=== PATIENT | female | born 1995 | race Two or more races ===

== ENCOUNTER 2017-02-08 17:51 | Emergency (ER) | payer OTHER ==
--- NOTE | 2017-02-08 18:50 | ER Document Report ---
HPI - HPI Patient complains to provider of: viera vaginal discharge Onset: Last week Onset/Duration: Gradual Pain Level: 1 Context: 21 yo female c/o bryant vaginal discharge, no odor. some suprabpubic discomfort, thinks she has a urinary tract infection. No fever or chills. Associated Symptoms: None Exacerbated by: Denies Relieved by: Denies Similar symptoms previously: No Recently seen / treated by doctor: No - ROS ROS below otherwise negative: Yes Systems Reviewed and Negative: Yes All other systems reviewed and negative Past Medical History - General Information source: Patient - Social History Smoking Status: Never Smoker Frequency of alcohol use: None Drug Abuse: None Lives with: Spouse/Significant other Family History: Reviewed & Not Pertinent - Medical History Medical History: Negative Surgical Hx: Negative Vertical Provider Document - CONSTITUTIONAL Agree With Documented VS: Yes Exam Limitations: No Limitations General Appearance: No Apparent Distress - INFECTION CONTROL TRAVEL OUTSIDE OF THE [place] IN LAST 30 DAYS: No - HEENT HEENT: Normal ENT Exam - NECK Neck: Supple - RESPIRATORY Respiratory: Breath Sounds Normal, No Respiratory Distress O2 Sat by Pulse Oximetry: 100 - CARDIOVASCULAR Cardiovascular: Regular Rate, Regular Rhythm - GI/ABDOMEN Gastrointestinal: Abdomen Soft, Abdomen Non-Tender - BACK Back: Normal Inspection. negative: CVA Tenderness-Right, CVA Tenderness-Left - MUSCULOSKELETAL/EXTREMETIES Musculoskeletal/Extremeties: BRENDA SAWYER - NEURO Level of Consciousness: Awake, Alert, Appropriate - DERM Integumentary: Warm, Dry Course - Vital Signs Vital signs: Temp Pulse Resp BP Pulse Ox 97.6 F 98 18 118/73 100 02/08/17 17:56 02/08/17 17:56 02/08/17 17:56 02/08/17 17:56 02/08/17 17:56 Discharge - Discharge Clinical Impression: Bacterial vaginosis Condition: Good Disposition: HOME, SELF-CARE Instructions: Metronidazole ([facility]), Vaginosis, Bacterial ([facility]) Additional Instructions: see obgyn doctor if this persists no alcohol when taking the metronidazole for 1 week, twice a day to er if worse copy of labs given to you please call me in 3 hours for the STD culture result [phone] Prescriptions: Metronidazole [Flagyl 500 mg Tablet] 500 mg PO BID #14 tablet Referrals: VICKY MAGAÑA MD [ACTIVE STAFF] - Follow up as needed
[2017-02-08 19:47] LABS: APPEARANCE,URINE SLIGHTLY-CLOUDY; BILIRUBIN,URINE NEGATIVE (NEGATIVE); GLUCOSE, URINE NEGATIVE (NEGATIVE); KETONES,URINE NEGATIVE (NEGATIVE); LEUKOCYTE ESTERASE,URINE TRACE (NEGATIVE); NITRITE,URINE NEGATIVE (NEGATIVE); PROTEIN,URINE NEGATIVE (NEGATIVE); URINE SPECIFIC GRAVITY 1.025; UROBILINOGEN,URINE NEGATIVE mg/dL (<2.0)
[2017-02-08 20:37] VITALS: BP 110/70
== END 2017-02-08 20:36 | disposition home or self-care (01) ==
LOC: ER 17:51
DX: N76.0 Acute vaginitis (principal); B96.89 Other specified bacterial agents as the cause of diseases classified elsewhere
CPT/HCPCS: 81001; 81025; 87086; 87210; 87491; 87591; 99283

== ENCOUNTER 2017-10-30 06:37 | Inpatient (IN) | payer OTHER ==
--- NOTE | 2017-10-30 07:16 | Admission Physical ---
Datetime Report Generated by CPN: 10/30/2017 07:16 CURRENT ADMISSION Chief Complaint: Uterine Contractions; Suspected Ruptured Membranes Admit Impression : No Active Labor; Ruptured Membranes Admit Plan: Admit to Unit; Initiate Labor Protocol ALLERGIES Medication Allergies: No Known Allergies (02/08/2017) OBSTETRICAL HISTORY EDC: 11/30/2017 00:00 : 2 Term: 0 SAB: 0 Ectopic: 0 Livin Cesareans: 0 VBACs: 0 Multiple Births: 0 PHYSICAL EXAM General: Normal HEENT: Normal Neurologic: Normal Thyroid: Deferred Heart: Normal Lungs: Normal Breast: Deferred Back: Normal Abdomen: Normal Genitourinary Exam: Normal Extremities: Normal DTRs: Normal Pelvic Type: Adequate Vital Signs: Reviewed VAGINAL EXAM Dilatation: 3 Effacement: 80 Station: -2 Contraction Comments: q 2-3 FETUS A EGA: 35.4 Monitoring: External US FHR- Baseline: 125 Variability: Moderate 6-25bpm Accelerations: 15X15 Decelerations: None FHR Category: Category I Presentation: Vertex Admit Comment: 21yo (term for NTD at 20wks) at 35+4ega presents for uterine ctx. Upon arrival SROM with clear fluid. GBS unknown. PCN for GBS prophy. May augment if needed. o/w uncomplicated. Admit to Labor and delivery for delivery. Anticipate . INFORMED CONSENT Informed Consent Obtained: Vaginal Delivery; Risks, Benefits and Alternatives Discussed Signature: with User ID: [email or web address]
[2017-10-30] MEDS ORDERED: PENICILLIN G POTASSIUM 5,000,000 UNIT in DEXTROSE 5%-WATER 100 ML IV ONE (07:30)
[2017-10-30] MEDS ORDERED: RINGERS SOLUTION,LACTATED 1,000 ML IV ONE (07:30)
[2017-10-30] MEDS ORDERED: RINGERS SOLUTION,LACTATED 1,000 ML IV PRN (07:30)
[2017-10-30] MEDS ORDERED: EPHEDRINE SULFATE INJ 50 MG/1 ML AMPULE ONE (08:11)
[2017-10-30] MEDS ORDERED: BUPIVACAINE HCL 0.5 % INJ/PF 30 ML SDV ONE (08:12)
[2017-10-30] MEDS ORDERED: FENTANYL/BUPIVACAINE/NS/PF 200 MCG/100 ML RTUINJ EPI ONE (08:12)
[2017-10-30 08:21] LABS: APPEARANCE,URINE CLEAR; BILIRUBIN,URINE NEGATIVE (NEGATIVE); COLOR,URINE YELLOW; GLUCOSE, URINE NEGATIVE (NEGATIVE); KETONES,URINE NEGATIVE (NEGATIVE); LEUKOCYTE ESTERASE,URINE TRACE (NEGATIVE); NITRITE,URINE NEGATIVE (NEGATIVE); PROTEIN,URINE NEGATIVE (NEGATIVE); URINE SPECIFIC GRAVITY 1.006; UROBILINOGEN,URINE NEGATIVE mg/dL (<2.0)
[2017-10-30] MEDS ORDERED: MISOPROSTOL 0.2 MG TABLET ONE (08:21)
[2017-10-30] MEDS ORDERED: OXYTOCIN/NORMAL SALINE 20 UNIT/1,000 ML RTUINJ ONE (08:22)
[2017-10-30] MEDS ORDERED: LIDOCAINE 1% INJ-PF (10 MG/ML) 30 ML SDV ONE (08:22)
[2017-10-30 08:35] LABS: URINE AMPHETAMINES SCREEN NEGATIVE; URINE BARBITURATES SCREEN NEGATIVE; URINE BENZODIAZEPINES SCREEN NEGATIVE; URINE COCAINE SCREEN NEGATIVE; URINE MARIJUANA (THC) SCREEN NEGATIVE; URINE METHADONE SCREEN NEGATIVE; URINE PHENCYCLIDINE SCREEN NEGATIVE
[2017-10-30 08:37] LABS: HEMOGLOBIN 10.8 g/dL (12.0-15.5); MEAN CORPUSCULAR HGB CONC 32.7 g/dL (32.0-36.0); MEAN CORPUSCULAR VOLUME 86 fl (80-97); PLATELET COUNT 420 10^3/uL (150-450); RED BLOOD COUNT 3.86 10^6/uL (3.72-5.28); RED CELL DISTRIBUTION WIDTH 14.2 % (11.5-14.0); WHITE BLOOD COUNT 13.6 10^3/uL (4.0-10.5)
[2017-10-30] MEDS ORDERED: PENICILLIN G-K 5 MILLION UNIT VIAL ONE ×2 (09:44→13:37)
--- NOTE | 2017-10-30 10:50 | L&D Progress Notes ---
PROGRESS NOTES Datetime Report Generated by CPN: 10/30/2017 10:50 PROGRESS NOTE Impression: Reassuring Heart Rate Procedures: Sterile Vag Exam Plan: Continue Present Management; Anticipate Vaginal Delivery Informed Consent Obtained: Vaginal Delivery; Risks, Benefits and Alternatives Discussed Vital Signs : Reviewed; Within Normal Limits Comment: with SROM and spontaneous labor at 35.4 wks. PCN prophylaxis for unknown GBS. Pt comfortable with the epidural. Feeling no rectal pressure at all. Dr Araiza aware of pt status and agrees with plan of care. Will labor down until strong urge to push. Anticipate VAGINAL EXAM Dilatation: rim Dilatation: 3 Effacement: 100 Effacement: 80 Station: 1 Station: -2 Contractions: q2-4 Contractions: q 2-3 MEMBRANES Membranes: Ruptured Amniotic Fluid Color: Clear FETUS A Monitoring: External US Variability: Moderate 6-25bpm Accelerations: 15X15 Decelerations: None FHR Category: Category I Presentation: Vertex SIGNATURE SIGNATURE: [id number] SIGNATURE: [id number] Assignment: Megan Araiza MD Signature: with User ID: [email or web address] : with User ID: [email or web address]
--- NOTE | 2017-10-30 12:58 | L&D Progress Notes ---
PROGRESS NOTES Datetime Report Generated by CPN: 10/30/2017 12:58 PROGRESS NOTE Impression: Normal Progression of Labor; Reassuring Heart Rate Procedures: Sterile Vag Exam Plan: Continue Present Management; Anticipate Vaginal Delivery Vital Signs : Reviewed; Within Normal Limits Comment: Pt remains comfortable with the epidural, no strong urge to push. PCN x 1 dose infused, next dose due in one hour. Will labor down and start pushing when 2nd dose of PCN is infusing.Dr Araiza updated, Anticipate . VAGINAL EXAM Dilatation: 10 Effacement: 100 Station: 1 MEMBRANES Membranes: Ruptured Amniotic Fluid Color: Clear FETUS A FHR - Baseline: 125 Variability: Moderate 6-25bpm Decelerations: None FHR Category: Category I FETUS C SIGNATURE: [id number] Assignment: Megan Araiza MD Signature: with User ID: [email or web address] : with User ID: [email or web address]
[2017-10-30] MEDS: PENICILLIN G POTASSIUM 2,500,000 UNIT in DEXTROSE 5%-WATER 50 ML IV SCH ×2 (13:52→17:52)
[2017-10-30] MEDS ORDERED: DIPH/PERTUSS(ACELL)/TETANUS VAC/PF 0.5 ML SYR (>=10YO) IM PRN (15:04)
[2017-10-30] MEDS ORDERED: OXYTOCIN/NORMAL SALINE 20 UNIT/1,000 ML RTUINJ IV PRN (15:04)
[2017-10-30] MEDS ORDERED: DIBUCAINE 1% OINTMENT 28 GM TP PRN (15:04)
[2017-10-30] MEDS ORDERED: ACETAMINOPHEN WITH CODEINE #3 TABLET PO PRN (15:04)
[2017-10-30] MEDS ORDERED: MEASLES,MUMPS&RUBELLA VACC/PF 0.5 ML VIAL SUBCUT PRN (15:04)
[2017-10-30] MEDS ORDERED: ZOLPIDEM TARTRATE 5 MG TABLET PO PRN (15:04)
[2017-10-30] MEDS ORDERED: BENZOCAINE/MENTHOL AEROSOL SPRAY 56 ML TOP PRN (15:04)
--- NOTE | 2017-10-30 17:01 | Delivery Summary ---
Del Sum A-C Datetime Report Generated by CPN: 10/30/2017 17:01 DELIVERY PERSONNEL DELIVERY PERSONNEL: [id number] Delivery Doctor:: Lenore Wade CNM (Annotations: Data stored by [facility] on behalf of user) Labor and Delivery Nurse:: Crystal Mendez RNbook mender Nurse:: ANNEMARIE Momin Sales Service Manager/MEAT PACKAGER: Corina Dixon CST Sales Service Manager/MEAT PACKAGER: Ruthie Moscoso CNA II Additional Personnel: : Zia Cohen, RN MATERNAL INFORMATION Delivery Anesthesia: Epidural Medications After Delivery: Pitocin Bolus-Please Comment; Pitocin Drip 20 Units/1000ml NSS Estimated Blood Loss (ml): 100 Maternal Complications: None Provider Comments: of viable 35 wk male, delivered HUMA with loose NC which was easily reduced. Baby vigorous and crying, placed on pts abdoman in stable condition. Delayed cord clamping x 1 min, then cord was clamped and cut. Cord blood obtained. Placenta delivered S/C/I. Pitocin infusing, Fundus Firm. Perineum intact. Mother and baby in stable condition and skin to skin. Pt plans to breastfeed LABOR SUMMARY EDC: 11/30/2017 00:00 No. Babies in Womb: 1 Attempted: No Labor Anesthesia: Epidural LABOR INFORMATION Reason for Induction: Not Applicable Onset of Labor: 10/30/2017 08:18 Complete Dilatation: 10/30/2017 12:51 Oxytocin: N/A Group B Beta Strep: UNKNOWN Antibiotics # of Doses: 2 Antibiotics Time of Last Dose: 1351 Name of Antibiotic Given: PENICILLIN G Steroids Given: None Reason Steroids Not Administered: Not Applicable MEMBRANES Membranes Rupture Method: Spontaneous Rupture of Membranes: 10/30/2017 06:56 Length of Rupture (hr): 7.77 Amniotic Fluid Color: Clear Amniotic Fluid Amount: Moderate Amniotic Fluid Odor: Normal STAGES OF LABOR Stage 1 hr: 4 Stage 1 min: 33 Stage 2 hr: 1 Stage 2 min: 51 Stage 3 hr: 0 Stage 3 min: 7 Total Time in Labor hr: 6 Total Time in Labor min: 31 VAGINAL DELIVERY Episiotomy: None Laceration #1: None Laceration Extension #1: N/A Laceration Repair: Not Applicable Sponge Count Correct: N/A Sharps Count Correct: N/A BABY A INFORMATION Infant Delivery Date/Time: 10/30/2017 14:42 Method of Delivery: Vaginal Born in Route : No : N/A Forceps: N/A Vacuum Extraction: N/A Shoulder Dystocia : No PRESENTATION/POSITION BABY A Presentation: Cephalic Cephalic Presentation: Vertex Vertex Position: Right Occipital Anterior Breech Presentation: N/A PLACENTA INFORMATION BABY A Placenta Delivery Time : 10/30/2017 14:49 Placenta Method of Delivery: Spontaneous Placenta Status: Delivered SCORES BABY A Heart Rate 1 min: >100 bpm Resp Effort 1 min: Good Cry Reflex Irritability 1 min: Cough or Sneeze or Pulls Away Muscle Tone 1 min: Active Motion Color 1 min: Body [place], Extremities Blue Resuscitation Effort 1 min: Tactile Stimulation SCORE 1 MIN: 9 Heart Rate 5 min: >100 bpm Resp Effort 5 min: Good Cry Reflex Irritability 5 min: Cough or Sneeze or Pulls Away Muscle Tone 5 min: Active Motion Color 5 min: Body [place], Extremities Blue Resuscitation Effort 5 min: Tactile Stimulation SCORE 5 MIN: 9 INFORMATION BABY A Gestational Age at Delivery: 35.4 Gestational Status: Late - 34- 36.6 Weeks Infant Outcome : Liveborn Condition : Stable Infant Sex: Male IDENTIFICATION BABY A Infant Verification Date/Time: 10/30/2017 15:10 ID Band Number: [id number] Mother's Name Verified: Yes RN Verifying : R FANNY RN Additional Verifying Personnel: [facility] WEIGHT/LENGTH BABY A Infant Birthweight (gm): 2765 Weight (lb): 6 Infant Weight (oz): 2 Length (in): 19.00 Infant Length (cm): 48.26 CORD INFORMATION BABY A No. Cord Vessels: 3 Nuchal Cord : Around Neck x1, Loose Cord Blood Taken: Yes-For Storage (Mom's Blood type +) Suction: None ASSESSMENT BABY A Complications: Other Infant Complications- Other: PROM Physical Findings at Delivery: Caput Succedaneum Physical Findings- Other: 1532 baby to nursery Respirations: Grunting Skin to Skin: Yes Skin to Skin Time (min): 50 Operations Support Professionals/ALS Called : No Infant Care By: ANNEMARIE GIL Transferred To: Remains with Mother BABY B INFORMATION : N/A SIGNATURES Assignment: Megan Araiza MD Signature: with User ID: [email or web address] : with User ID: [email or web address]
[2017-10-30] MEDS: DOCUSATE SODIUM 100 MG CAPSULE PO SCH (17:57)
[2017-10-30] MEDS ORDERED: FERROUS SULFATE 325 MG TABLET PO SCH (18:00)
[2017-10-30] MEDS: IBUPROFEN 800 MG TABLET PO SCH (22:08)
[2017-10-30 23:27] LABS: CHLAM PCR NOT DETECTED (NOT DETECT); GON PCR NOT DETECTED (NOT DETECT)
[2017-10-31] MEDS: ACETAMINOPHEN WITH CODEINE #3 TABLET PO PRN ×2 (03:50→09:46)
[2017-10-31] MEDS: IBUPROFEN 800 MG TABLET PO SCH ×3 (05:33→21:20)
[2017-10-31 07:32] LABS: HEMATOCRIT 32.4 % (36.0-47.0); HEMOGLOBIN 10.7 g/dL (12.0-15.5); MEAN CORPUSCULAR HEMOGLOBIN 27.6 pg (27.0-33.4); MEAN CORPUSCULAR VOLUME 84 fl (80-97); PLATELET COUNT 354 10^3/uL (150-450); RED BLOOD COUNT 3.86 10^6/uL (3.72-5.28); RED CELL DISTRIBUTION WIDTH 14.4 % (11.5-14.0); WHITE BLOOD COUNT 13.8 10^3/uL (4.0-10.5)
--- NOTE | 2017-10-31 09:34 | PDOC PROGRESS REPORT ---
Subjective-OB Progress Note for:: 10/31/17 Subjective: Pt doing well, no concerns. She reports light bleeding, reg diet, and no difficulty voiding. Physical Exam (OB) Vital Signs: Temp Pulse Resp BP Pulse Ox 97.4 F 81 16 108/69 99 10/31/17 09:05 10/31/17 09:05 10/31/17 09:05 10/31/17 09:05 10/31/17 09:05 Intake & Output 10/30/17 10/31/17 11/01/17 06:59 06:59 06:59 Intake Total 2215 Balance 2215 Weight 73.4 kg - PIH/Pre-Eclampsia Headache: Absent Epigastric Pain: No Visual Changes: No - Lochia Lochia Amount: Scant < 10 ml Lochia Color: Rubra/Red - Abdomen Description: Soft, Round Hernia Present: No Fundal Description: Firm, Midline Fundal Height: u/u - u/2 Objective-Diagnostic Laboratory: 10/31/17 07:00 10/30/17 10/31/17 07:43 07:00 WBC 13.8 H RBC 3.86 Hgb 10.7 L Hct 32.4 L MCV 84 MCH 27.6 MCHC 33.0 RDW 14.4 H Plt Count 354 Blood Type A POSITIVE Antibody Screen NEGATIVE Assessment and Plan(PN) - Assessment and Plan (1) Vaginal delivery Is this a current diagnosis for this admission?: Yes - Time Spent with Patient Time with patient: Less than 15 minutes Medications reviewed and adjusted accordingly: Yes - Disposition Anticipated Discharge: Home Within: within 24 hours
[2017-10-31] MEDS: SENNOSIDES/DOCUSATE 8.6-50 MG 1 EACH TABLET PO SCH (09:47)
[2017-10-31] MEDS: PRENATAL VITAMIN W DHA CAPSULE PO SCH (09:47)
[2017-10-31] MEDS: DOCUSATE SODIUM 100 MG CAPSULE PO SCH ×2 (09:47→17:56)
[2017-11-01] MEDS: IBUPROFEN 800 MG TABLET PO SCH ×2 (05:09→13:56)
--- NOTE | 2017-11-01 09:54 | PDOC DISCHARGE SUMMARY ---
Final Diagnosis Discharge Date: 11/01/17 - Final Diagnosis (1) Vaginal delivery Is this a current diagnosis for this admission?: Yes Discharge Data - Discharge Medication Prescriptions: Ibuprofen [Motrin 800 mg Tablet] 800 mg PO Q8 #60 tablet Home Medications: Ibuprofen [Motrin 800 mg Tablet] 800 mg PO Q8 #60 tablet 11/01/17 Vit/Dha [ Multi + Dha Capsule] 1 cap PO DAILY capsule Procedures: NST Intrapartum Procedure(s): Spontaneous Vaginal Delivery - Diagnosis Test Laboratory: Temp Pulse Resp BP Pulse Ox 98.0 F 86 18 113/60 100 11/01/17 08:12 11/01/17 08:12 11/01/17 08:12 11/01/17 08:12 11/01/17 08:12 10/30/17 10/30/17 10/31/17 06:51 07:43 07:00 RBC 3.86 3.86 Hgb 10.8 L 10.7 L Hct 33.0 L 32.4 L Urine Opiates Screen NEGATIVE - Discharge information/Instructions Discharge Activity: Balance Activity w/Rest, Pelvic Rest Discharge Diet: Regular Disposition: HOME, SELF-CARE Follow up with: [facility] in: 4, Weeks
[2017-11-01 11:02] VITALS: BP 106/71
[2017-11-01] MEDS: DOCUSATE SODIUM 100 MG CAPSULE PO SCH (11:22)
[2017-11-01] MEDS: PRENATAL VITAMIN W DHA CAPSULE PO SCH (11:22)
[2017-11-01] MEDS: SENNOSIDES/DOCUSATE 8.6-50 MG 1 EACH TABLET PO SCH (11:22)
== END 2017-11-01 14:00 | disposition home or self-care (01) | DRG 775 ==
LOC: LC 06:37 → LR 07:14 → 2S 17:31
PROVIDERS: ADMIT Student in an Organized Health Care Education/Training Program; ATTEND Student in an Organized Health Care Education/Training Program
PROC: 10E0XZZ Delivery of Products of Conception, External Approach (ICD-10-PCS; principal; 2017-10-30)
PROC: 4A1HXCZ Monitoring of Products of Conception, Cardiac Rate, External Approach (ICD-10-PCS; 2017-10-30)
DX: O42.913 Preterm premature rupture of membranes, unspecified as to length of time between rupture and onset of labor, third trimester (principal); O69.81X0 Labor and delivery complicated by cord around neck, without compression, not applicable or unspecified; Z37.0 Single live birth; Z3A.35 35 weeks gestation of pregnancy
CPT/HCPCS: 36415; 80307; 81001; 85027; 86592; 86850; 86900; 86901; 87491; 87591; 88307; J2540; J2590; J3490

== ENCOUNTER 2018-05-22 07:38 | Emergency (ER) | payer OTHER ==
[2018-05-22 09:31] LABS: APPEARANCE,URINE CLOUDY; BILIRUBIN,URINE NEGATIVE (NEGATIVE); COLOR,URINE YELLOW; GLUCOSE, URINE NEGATIVE (NEGATIVE); KETONES,URINE NEGATIVE (NEGATIVE); LEUKOCYTE ESTERASE,URINE LARGE (NEGATIVE); NITRITE,URINE NEGATIVE (NEGATIVE); PROTEIN,URINE 30 mg/dL (NEGATIVE); URINE SPECIFIC GRAVITY 1.016; UROBILINOGEN,URINE NEGATIVE mg/dL (<2.0)
--- NOTE | 2018-05-22 09:37 | ER Document Report ---
HPI - HPI Patient complains to provider of: pain with void Time Seen by Provider: 05/22/18 09:03 Onset: Yesterday Onset/Duration: Sudden, Persistent Quality of pain: Achy Pain Level: 2 Context: She presents emergency department with complaints of right-sided flank pain and pain when she voids frequency. She reports symptoms started yesterday. She also reports her urine smells foul and looks cloudy. She reports history of UTIs. He denies other symptoms such as fever vomiting diarrhea. Associated Symptoms: None Exacerbated by: Other - Voiding Relieved by: Denies Similar symptoms previously: Yes Recently seen / treated by doctor: No - URINARY Urinary: REPORTS: Dysuria - REPRODUCTIVE LMP: 05/11/18 Reproductive: DENIES: : Past Medical History - General Information source: Patient Last Menstrual Period: depo - Social History Smoking Status: Unknown if Ever Smoked Cigarette use (# per day): No Frequency of alcohol use: None Drug Abuse: None Lives with: Family Family History: Reviewed & Not Pertinent Patient has suicidal ideation: No Patient has homicidal ideation: No - Medical History Medical History: Negative Renal/ Medical History: Denies: Hx Peritoneal Dialysis Past Surgical History: Reports: Hx Appendectomy Vertical Provider Document - CONSTITUTIONAL Agree With Documented VS: Yes Exam Limitations: No Limitations General Appearance: WD/WN, No Apparent Distress - Nontoxic looking - INFECTION CONTROL TRAVEL OUTSIDE OF THE [place] IN LAST 30 DAYS: No - HEENT HEENT: Atraumatic, Normocephalic - NECK Neck: Normal Inspection, Supple. negative: Lymphadenopathy-Left, Lymphadenopathy-Right - RESPIRATORY Respiratory: Breath Sounds Normal, No Respiratory Distress - CARDIOVASCULAR Cardiovascular: Regular Rate - GI/ABDOMEN Gastrointestinal: Abdomen Soft - BACK Back: CVA Tenderness-Right. negative: CVA Tenderness-Left - MUSCULOSKELETAL/EXTREMETIES Musculoskeletal/Extremeties: BRENDA SAWYER - NEURO Level of Consciousness: Awake, Alert, Appropriate Motor/Sensory: No Motor Deficit - DERM Integumentary: Warm, Dry Course - Re-evaluation Re-evalutation: 05/22/18 09:44 Urinalysis with blood large leukocytes WBCs. Positive UTI patient was instructed on Pyridium and Keflex. Does wear contacts she was instructed that Pyridium may discolor them and she should dispose of them. She verbalized understanding to all instructions including the importance of follow-up with a primary care provider for recheck. Dictation of this chart was performed using voice recognition software; therefore, there may be some unintended grammatical errors. - Vital Signs Vital signs: Temp Pulse Resp BP Pulse Ox 98.5 F 95 16 117/71 100 05/22/18 07:51 05/22/18 07:51 05/22/18 07:51 05/22/18 07:51 05/22/18 07:51 - Laboratory Laboratory results interpreted by me: 05/22/18 09:12 Urine Protein 30 H Urine Blood MODERATE H Ur Leukocyte Esterase LARGE H Discharge - Discharge Clinical Impression: Dysuria Urinary tract infection Qualifiers: Urinary tract infection type: acute cystitis Hematuria presence: with hematuria Qualified Code(s): N30.01 - Acute cystitis with hematuria Condition: Stable Disposition: HOME, SELF-CARE Instructions: Cephalexin ([facility]), Urinary Anesthetic Agent ([facility]), Urinary Tract Infection ([facility]) Additional Instructions: *You have been evaluated for pain while voiding, UTI *Take medication as prescribed *Push fluids *Follow up with your primary care provider within one week *Plan urine recheck in one week *Return to ED for worsening condition, changes, needs, fever, worsening pain, unable to void Prescriptions: Cephalexin Monohydrate [Keflex 500 mg Capsule] 500 mg PO QID #10 capsule Phenazopyridine HCl [Pyridium 200 mg Tablet] 200 mg PO TID #15 tablet
[2018-05-22] MEDS ORDERED: PHENAZOPYRIDINE HCL 200 MG TABLET PO ONE (09:38)
[2018-05-22 10:01] VITALS: BP 115/66
== END 2018-05-22 10:05 | disposition home or self-care (01) ==
LOC: ER 07:38
DX: N30.01 Acute cystitis with hematuria (principal); R30.0 Dysuria; R10.9 Unspecified abdominal pain; Z87.440 Personal history of urinary (tract) infections
CPT/HCPCS: 99284; 81001; J3490

== ENCOUNTER 2018-08-31 22:03 | Emergency (ER) | payer OTHER ==
[2018-08-31 22:21] VITALS: BP 120/67
[2018-08-31 22:57] LABS: APPEARANCE,URINE CLOUDY; BILIRUBIN,URINE NEGATIVE (NEGATIVE); COLOR,URINE YELLOW; GLUCOSE, URINE NEGATIVE (NEGATIVE); KETONES,URINE NEGATIVE (NEGATIVE); LEUKOCYTE ESTERASE,URINE LARGE (NEGATIVE); NITRITE,URINE NEGATIVE (NEGATIVE); PROTEIN,URINE NEGATIVE (NEGATIVE); URINE SPECIFIC GRAVITY 1.017; UROBILINOGEN,URINE NEGATIVE mg/dL (<2.0)
[2018-08-31 22:59] LABS: ABSOLUTE BASOPHILS # (AUTO) 0.1 10^3/uL (0.0-0.2); ABSOLUTE EOSINOPHILS # (AUTO) 0.3 10^3/uL (0.0-0.6); ABSOLUTE LYMPHOCYTES (AUTO) 4.2 10^3/uL (0.5-4.7); ABSOLUTE MONOCYTES (AUTO) 0.7 10^3/uL (0.1-1.4); ABSOLUTE NEUT (AUTO) 4.8 10^3/uL (1.7-8.2); BASOPHILS % (AUTO) 0.6 % (0-2); EOSINOPHILS % (AUTO) 3.2 % (0-6); HEMATOCRIT 40.2 % (36.0-47.0); HEMOGLOBIN 13.5 g/dL (12.0-15.5); LYMPHOCYTES % (AUTO) 41.7 % (13-45); MEAN CORPUSCULAR HEMOGLOBIN 28.2 pg (27.0-33.4); MEAN CORPUSCULAR HGB CONC 33.5 g/dL (32.0-36.0); MEAN CORPUSCULAR VOLUME 84 fl (80-97); MONOCYTES % (AUTO) 7.1 % (3-13); PLATELET COUNT 376 10^3/uL (150-450); RED BLOOD COUNT 4.77 10^6/uL (3.72-5.28); SEGMENTED NEUTROPHILS % (AUTO) 47.4 % (42-78); TOTAL CELLS COUNTED % (AUTO) 100 %; WHITE BLOOD COUNT 10.1 10^3/uL (4.0-10.5)
[2018-08-31 23:24] LABS: ANION GAP 9 (5-19); BLOOD UREA NITROGEN 16 mg/dL (7-20); CALCIUM 10.1 mg/dL (8.4-10.2); CARBON DIOXIDE 28 mmol/L (22-30); CHLORIDE 105 mmol/L (98-107); GLUCOSE 92 mg/dL (75-110); SODIUM 141.8 mmol/L (137-145)
--- NOTE | 2018-09-01 00:28 | ER Document Report ---
ED General - General Chief Complaint: Abdominal Pain Stated Complaint: ABDOMINAL PAIN Time Seen by Provider: 08/31/18 22:35 Notes: Patient is a 22-year-old female without chronic medical problems who presents with 3 weeks of abdominal cramping, intermittent vaginal bleeding. Patient states that she last received Depo-Provera in February, had a period in May which was normal, did not have a. At all during June or July, and then has been having 3 to 4 weeks of abdominal cramping and intermittent vaginal spotting since then. Describes the abdominal discomfort as being a cramping, aching discomfort to her lower abdomen. Moderate in intensity. Nothing seems to improve or worsen this. Denies bleeding through more than 2 pads an hour at any time. Denies any current vaginal bleeding. Nothing is been noted to improve or worsen her symptoms. She denies a history of similar symptoms in the past. Denies lightheadedness or syncope. No fever or constitutional symptoms. Nothing is otherwise new or different regarding her symptoms tonight that prompted a visit to the emergency department. TRAVEL OUTSIDE OF THE [place] IN LAST 30 DAYS: No - Related Data Allergies/Adverse Reactions: No Known Allergies Allergy (Verified 05/22/18 07:47) Past Medical History - General Information source: Patient - Social History Smoking Status: Never Smoker Frequency of alcohol use: None Drug Abuse: None Lives with: Spouse/Significant other Family History: Reviewed & Not Pertinent Renal/ Medical History: Denies: Hx Peritoneal Dialysis Past Surgical History: Reports: Hx Appendectomy Review of Systems - Review of Systems Notes: Constitutional: Negative for fever. HENT: Negative for sore throat. Eyes: Negative for visual changes. Cardiovascular: Negative for chest pain. Respiratory: Negative for shortness of breath. Gastrointestinal: Positive for abdominal cramping Genitourinary: Positive for vaginal bleeding Musculoskeletal: Negative for back pain. Skin: Negative for rash. Neurological: Negative for headaches, weakness or numbness. 10 point ROS negative except as marked above and in HPI. Physical Exam - Vital signs Vitals: Temp Pulse Resp BP Pulse Ox 98.5 F 73 18 120/67 98 08/31/18 22:20 08/31/18 22:20 08/31/18 22:20 08/31/18 22:20 08/31/18 22:20 Interpretation: Normal Notes: PHYSICAL EXAMINATION: GENERAL: Well-appearing, well-nourished and in no acute distress. HEAD: Atraumatic, normocephalic. EYES: Pupils equal round and reactive to light, extraocular movements intact, sclera anicteric, conjunctiva are normal. ENT: nares patent, oropharynx clear without exudates. Moist mucous membranes. NECK: Normal range of motion, supple without lymphadenopathy LUNGS: Breath sounds clear to auscultation bilaterally and equal. No wheezes rales or rhonchi. HEART: Regular rate and rhythm without murmurs ABDOMEN: Soft, nontender, normoactive bowel sounds. No guarding, no rebound. N o masses appreciated. EXTREMITIES: Normal range of motion, no pitting or edema. No cyanosis. NEUROLOGICAL: No focal neurological deficits. Moves all extremities spontaneously and on command. PSYCH: Normal mood, normal affect. SKIN: Warm, Dry, normal turgor, no rashes or lesions noted. Course - Re-evaluation Re-evalutation: 09/01/18 00:27 Presentation is most consistent with dysfunctional uterine bleeding and otherwise well-appearing patient. Her hemoglobin was within normal limits. She is not . No tachycardia or hypotension. Examination is otherwise unremarkable. No focal abdominal pain. She denies bleeding through more than 2 pads an hour at any point in time. No indication for ultrasound at this time b ased on benign exam, vitals and laboratories. No active bleeding at this time. Patient will be started on oral control pills to help discontinue the bleeding. She has been encouraged to follow-up with CLINICAL PROGRAM COORDINATOR. History and exam not consistent with pelvic inflammatory disease, tubo-ovarian abscess, status post appendectomy remote past. At this time will discharge with return precautions and follow-up recommendations. Verbal discharge instructions given a the bedside and opportunity for questions given. Medication warnings reviewed. Patient is in agreement with this plan and has verbalized understanding of return precautions and the need for primary care follow-up in the next 24-72 h ours. - Vital Signs Vital signs: Temp Pulse Resp BP Pulse Ox 98.5 F 73 18 120/67 98 08/31/18 22:20 08/31/18 22:20 08/31/18 22:20 08/31/18 22:20 08/31/18 22:20 - Laboratory Result Diagrams: 08/31/18 22:45 08/31/18 22:45 Laboratory results interpreted by me: 08/31/18 22:39 Urine Blood LARGE H Ur Leukocyte Esterase LARGE H Discharge - Discharge Clinical Impression: Dysfunctional uterine bleeding, Lower abdominal pain Condition: Good Disposition: HOME, SELF-CARE Additional Instructions: You were seen today for dysfunctional uterine bleeding. This is when you have vaginal bleeding and abdominal cramping off of your normal menstrual cycle. You have been started on control pills to help regulate your cycle and control your symptoms. You need to follow-up with CLINICAL PROGRAM COORDINATOR or your primary care physician the next 1-3 days. Return immediately if you worsening pain, you began bleeding through more than 2 pads per hour for more than 3 hours, you pass out, have persistent vomiting, develop a fever greater than 100.4F, or any other symptoms that are concerning to you. Prescriptions: Norgestimate-Ethinyl Estradiol [Sprintec 28 Day Tablet] 1 each PO ASDIR PRN #2 packet PRN Reason:
== END 2018-09-01 00:50 | disposition home or self-care (01) ==
LOC: ER 22:03
DX: N93.8 Other specified abnormal uterine and vaginal bleeding (principal); R10.30 Lower abdominal pain, unspecified
CPT/HCPCS: 36415; 80048; 81001; 84702; 85025; 99284

== ENCOUNTER 2019-09-19 11:16 | Emergency (ER) | payer OTHER ==
--- NOTE | 2019-09-19 11:42 | ER Document Report ---
ED Medical Screen (RME) - General Chief Complaint: Vag Bleeding, +preg <12wks Stated Complaint: VAGINAL BLEEDING/6 WKS Time Seen by Provider: 09/19/19 11:40 Information source: Patient Notes: This 23-year-old female who had a last menstrual period August 07 she believes she is 6 weeks this morning she started having suprapubic discomfort pain spotting cramping and bleeding. TRAVEL OUTSIDE OF THE [place] IN LAST 30 DAYS: No - Related Data Allergies/Adverse Reactions: No Known Allergies Allergy (Verified 05/22/18 07:47) Past Medical History - Social History Chew tobacco use (# tins/day): No Drug Abuse: None Renal/ Medical History: Denies: Hx Peritoneal Dialysis Past Surgical History: Reports: Hx Appendectomy Physical Exam - Vital signs Vitals: Temp Pulse Resp BP Pulse Ox 98.9 F 93 16 114/71 99 09/19/19 11:28 09/19/19 11:28 09/19/19 11:28 09/19/19 11:28 09/19/19 11:28 Course - Vital Signs Vital signs: Temp Pulse Resp BP Pulse Ox 98.9 F 93 16 114/71 99 09/19/19 11:38 09/19/19 11:28 09/19/19 11:28 09/19/19 11:28 09/19/19 11:28
[2019-09-19 12:08] LABS: ABSOLUTE EOSINOPHILS # (AUTO) 0.1 10^3/uL (0.0-0.6); ABSOLUTE LYMPHOCYTES (AUTO) 2.9 10^3/uL (0.5-4.7); ABSOLUTE MONOCYTES (AUTO) 0.6 10^3/uL (0.1-1.4); ABSOLUTE NEUT (AUTO) 6.2 10^3/uL (1.7-8.2); BASOPHILS % (AUTO) 0.4 % (0-2); EOSINOPHILS % (AUTO) 1.2 % (0-6); HEMATOCRIT 40.9 % (36.0-47.0); LYMPHOCYTES % (AUTO) 29.3 % (13-45); MEAN CORPUSCULAR HEMOGLOBIN 30.1 pg (27.0-33.4); MEAN CORPUSCULAR HGB CONC 34.3 g/dL (32.0-36.0); MEAN CORPUSCULAR VOLUME 88 fl (80-97); MONOCYTES % (AUTO) 5.7 % (3-13); PLATELET COUNT 452 10^3/uL (150-450); RED BLOOD COUNT 4.67 10^6/uL (3.72-5.28); RED CELL DISTRIBUTION WIDTH 13.3 % (11.5-14.0); SEGMENTED NEUTROPHILS % (AUTO) 63.4 % (42-78); TOTAL CELLS COUNTED % (AUTO) 100 %; WHITE BLOOD COUNT 9.7 10^3/uL (4.0-10.5)
[2019-09-19 12:21] LABS: ALBUMIN 4.1 g/dL (3.5-5.0); ALKALINE PHOSPHATASE 120 U/L (38-126); ANION GAP 6 (5-19); APPEARANCE,URINE SLIGHTLY-CLOUDY; ASPARTATE AMINO TRANSFERASE 18 U/L (14-36); BILIRUBIN,TOTAL 0.4 mg/dL (0.2-1.3); BILIRUBIN,URINE NEGATIVE (NEGATIVE); BLOOD UREA NITROGEN 10 mg/dL (7-20); CALCIUM 9.4 mg/dL (8.4-10.2); CARBON DIOXIDE 27 mmol/L (22-30); CHLORIDE 103 mmol/L (98-107); COLOR,URINE RED; GLUCOSE 87 mg/dL (75-110); GLUCOSE, URINE NEGATIVE (NEGATIVE); KETONES,URINE NEGATIVE (NEGATIVE); LEUKOCYTE ESTERASE,URINE TRACE (NEGATIVE); NITRITE,URINE NEGATIVE (NEGATIVE); PROTEIN,URINE 100 mg/dL (NEGATIVE); TOTAL PROTEIN 7.9 g/dL (6.3-8.2); URINE SPECIFIC GRAVITY 1.019; UROBILINOGEN,URINE NEGATIVE mg/dL (<2.0)
--- NOTE | 2019-09-19 12:55 | ER Document Report ---
ED GI/ - General Chief Complaint: Vag Bleeding, +preg <12wks Stated Complaint: VAGINAL BLEEDING/6 WKS Time Seen by Provider: 09/19/19 11:40 Primary Care Provider: KAYCEE HERNANDEZ MD [Primary Care Provider] - Follow up as needed Notes: CHIEF COMPLAINT: Vaginal bleeding HPI: 23-year-old female presenting to the emergency department for evaluation of heavy vaginal bleeding today. She is concerned she is having a miscarriage. Patient believes she is , had a positive test at home this w [place]. Believes she is approximately 5 or 6 weeks . Patient is a G3, . Reports some pelvic cramping today. No fever ROS: See HPI - all other systems were reviewed and are otherwise negative Constitutional: no fever or recent illness Eyes: no drainage, no blurred vision ENT: no runny nose, no sore throat Cardiovascular: no chest pain Resp: no SOB, no cough GI: no vomiting, no diarrhea, positive pelvic pain : no dysuria, no vaginal discharge, positive vaginal bleeding Integumentary: no rash Allergy: no hives Musculoskeletal: no extremity pain or swelling Neurological: no numbness/tingling, no weakness MEDICATIONS: I agree with the patient medications as charted by the RN. ALLERGIES: I agree with the allergies as charted by the RN. PAST MEDICAL HISTORY/PAST SURGICAL HISTORY: Reviewed and agree as charted by RN. SOCIAL HISTORY: Reviewed and agree as charted by RN. FAMILY HISTORY: No significant familial comorbid conditions directly related to patient complaint EXAM: Reviewed vital signs as charted by RN. CONSTITUTIONAL: Alert and oriented and responds appropriately to questions. Well-appearing; well-nourished HEAD: Normocephalic; atraumatic EYES: Conjunctivae clear, sclerae non-icteric ENT: normal nose; no rhinorrhea; moist mucous membranes; pharynx without lesions noted NECK: Supple without meningismus; non-tender; no cervical lymphadenopathy, no masses CARD: RRR; no murmurs, no clicks, no rubs, no gallops; symmetric distal pulses RESP: Normal chest excursion without splinting or tachypnea; breath sounds clear and equal bilaterally; no wheezes, no rhonchi, no rales, 100% on room air not hypoxic ABD/GI: Normal bowel sounds; non-distended; soft, mild tenderness over the suprapubic region on palpation, no rebound, no guarding; no palpable organome iliana or masses : Female nurse wet process miller head present. External genitalia normal. No skin lesions noted. Pelvic Exam: Small amount of dark red blood in the vaginal vault. No purulent discharge. Cervix appears normal. No CMT. cervical loss is open to fingertip. No lesions or masses. Uterus normal size and non tender. Right/Left adnexa normal size and non tender. BACK: The back appears normal and is non-tender to palpation, there is no CVA tenderness EXT: Normal ROM in all joints; non-tender to palpation; no cyanosis, no effusions, no edema SKIN: Normal color for age and race; warm; dry; good turgor; no acute lesions noted NEURO: Moves all extremities equally; Motor and sensory function intact PSYCH: The patient's mood and manner are appropriate. Grooming and personal hygiene are appropriate. MDM: 23-year-old female concern for possible miscarriage. Lab work and ultrasound ordered via triage process TRAVEL OUTSIDE OF THE [place] IN LAST 30 DAYS: No - Related Data Allergies/Adverse Reactions: No Known Allergies Allergy (Verified 05/22/18 07:47) Past Medical History - General Information source: Patient - Social History Smoking Status: Never Smoker Chew tobacco use (# tins/day): No Drug Abuse: None Family History: Reviewed & Not Pertinent Renal/ Medical History: Denies: Hx Peritoneal Dialysis Past Surgical History: Reports: Hx Appendectomy Physical Exam - Vital signs Vitals: Temp Pulse Resp BP Pulse Ox 98.9 F 93 16 114/71 99 09/19/19 11:28 09/19/19 11:28 09/19/19 11:28 09/19/19 11:28 09/19/19 11:28 Course - Re-evaluation Re-evalutation: 09/19/19 13:58 Ultrasound suggests a small gestational sac low in the pelvis, patient cervix open to fingertip, she is having active bleeding, beta hCG is very low for dates . This all suggests a likely miscarriage this was discussed with the patient at length bleeding precautions were discussed LABEL SEWER follow-up. She has no pelvic pain on exam that would suggest an ectopic - Vital Signs Vital signs: Temp Pulse Resp BP Pulse Ox 98.9 F 93 16 114/71 99 09/19/19 11:38 09/19/19 11:28 09/19/19 11:28 09/19/19 11:28 09/19/19 11:28 - Laboratory Result Diagrams: 09/19/19 11:42 09/19/19 11:42 Laboratory results interpreted by me: 09/19/19 09/19/19 09/19/19 11:42 11:42 11:42 Plt Count 452 H Sodium 136.1 L Beta HCG, Quant 13.01 H Urine Protein 100 H Urine Blood LARGE H Ur Leukocyte Esterase TRACE H Discharge - Discharge Clinical Impression: Miscarriage Condition: Stable Disposition: HOME, SELF-CARE Instructions: Miscarriage (FORM[facility]LY [facility]) Additional Instructions: 1. follow up with OB for repeat Beta-HCG blood test in 3-5 days 2. follow up with OB for further evaluation and treatment, call for appt. 3. return to the ED for any worsening/onset of abdominal pain, vomiting or vaginal bleeding where you are saturating > 1 pad per hour Referrals: KAYCEE HERNANDEZ MD [Primary Care Provider] - Follow up as needed
--- NOTE | 2019-09-19 12:59 | RADIOLOGY REPORT (SQ) ---
EXAM DESCRIPTION: U/S OB TRANSVAGINAL W/O DOP IMAGES COMPLETED DATE/TIME: 09/19/2019 12:36 pm REASON FOR STUDY: pain COMPARISON: None. TECHNIQUE: Transvaginal static and realtime grayscale images acquired of the pelvis. Additional tiny cted spectral and color Doppler images recorded. All images stored on PACs. bHCG: Not available. CLINICAL DATES: 6 weeks 0 days LIMITATIONS: None. FINDINGS: UTERUS: Possible gestational sac within the mid uterus. ULTRASOUND EGA: 5 weeks 2 days ULTRASOUND ANURAG: 05/20/2019 EFW: Not applicable less than 20 weeks. SURVEY: No visualized anomalies. AMNIOTIC FLUID: Adequate amount. PLACENTA: Not yet developed due to early gestation. SUBCHORIONIC BLEED: No. SIZE OF BLEED: Not applicable. UTERUS: No masses. No anomalies. CERVIX: Closed. Nabothian cyst. RIGHT ADNEXA: Normal ovary with normal vascular flow. No adnexal free fluid. No adnexal masses. LEFT ADNEXA: Normal ovary with normal vascular flow. Small amount of adnexal free fluid. No adnexal masses. FREE FLUID: None. OTHER: No other significant finding. IMPRESSION: Possible gestational sac within the mid uterus. Inevitable miscarriage may be of concer n given the low lying position. Small amount of free fluid within the pelvis/left adnexa. Trimester of : First trimester - 0 to 13 weeks. TECHNICAL DOCUMENTATION: JOB ID: [id number] 2010 [employer]- All Rights Reserved rev Reading location - IP/workstation name: [email or web address]
[2019-09-19 13:56] LABS: EPITHELIALS (WET MOUNT) 3+ EPITHELIALS SEEN; RBCS (WET MOUNT) 4+ RBCS SEEN; T.VAGINALIS (WET MOUNT) NO TRICHOMONAS SEEN; WBCS (WET MOUNT) NO WBCS SEEN; YEAST (WET MOUNT) NO YEAST SEEN
[2019-09-19 14:20] VITALS: BP 112/62
[2019-09-19 15:23] LABS: CHLAM PCR NOT DETECTED (NOT DETECT)
== END 2019-09-19 14:15 | disposition home or self-care (01) ==
LOC: ER 11:16
DX: O03.9 Complete or unspecified spontaneous abortion without complication (principal); R10.2 Pelvic and perineal pain
CPT/HCPCS: 36415; 76817; 80053; 81001; 84702; 85025; 86900; 86901; 87210; 87491; 87591; 99284